=== PATIENT | male | born 1960 | race Caucasian/White ===

== ENCOUNTER 2019-06-11 07:32 | Emergency (ER) | payer OTHER ==
--- NOTE | 2019-06-11 08:23 | ER ---
Nurse's Notes [facility] Name: Kofi Rodríguez Age: 59 yrs Sex: Male : 1960 Arrival Date: 06/11/2019 Time: 07:33 Bed 15 Private MD: Diagnosis: Toxic effect of venom of wasps;Cellulitis of left upper limb Presentation: 06/10 07:58 Chief complaint: Chief complaint: Patient states: left hand redness and swelling after aa5 being stung by wasp yesterday. 07:58 Initial Sepsis Screen: Does the patient meet any 2 criteria? No. Patient's initial aa5 sepsis screen is negative. Does the patient have a suspected source of infection? No. Patient's initial sepsis screen is negative. Risk Assessment: Do you want to hurt yourself or someone else? Patient reports no desire to harm self or others. Onset of symptoms was May 2019. 07:58 Acuity: RADHA 5 aa5 07:58 Method Of Arrival: Ambulatory aa5 07:58 Coronavirus screen: Proceed with normal triage. Patient denies a cough. Patient denies aa5 shortness of breath or difficulty breathing. Patient denies measured and/or subjective temperature greater than 100.4F prior to today's visit. Patient denies travel on a cruise ship or to a country the [facility] currently lists as an affected area. Patient denies contact with known and/or suspected case of COVID-19. Ebola Screen: Patient negative for fever greater than or equal to 101.5 degrees Fahrenheit, and additional compatible Ebola Virus Disease symptoms. Onset: The symptoms/episode began/occurred 1 day(s) ago. Anaphylaxis evaluation, no signs or symptoms of anaphylaxis were noted. Historical: - Allergies: 08:01 NKDA; aa5 - PMHx: 08:01 Cellulitis; aa5 - PSHx: 08:01 cyst removed from neck and back; aa5 - Immunization history:: Flu vaccine is not up to date. - Social history:: Smoking status: Patient denies any tobacco usage or history of. - Family history:: not pertinent. - Hospitalizations: : No recent hospitalization is reported. Screenin:00 Abuse screen: Denies threats or abuse. Nutritional screening: No deficits noted. aa5 Tuberculosis screening: No symptoms or risk factors identified. Fall Risk None identified. Assessment: 08:02 General: Appears comfortable, Behavior is calm, cooperative. Pain: Complains of pain in aa5 left hand Pain does not radiate. Pain currently is 3 out of 10 on a pain scale. Is continuous. Neuro: Level of Consciousness is awake, alert, obeys commands, Oriented to person, place, time, situation. Cardiovascular: Patient's skin is warm and dry. Respiratory: Airway is patent Respiratory effort is even, unlabored, Respiratory pattern is regular, symmetrical, Breath sounds are clear bilaterally. GI: No signs and/or symptoms were reported involving the gastrointestinal system. : No signs and/or symptoms were reported regarding the genitourinary system. EENT: No signs and/or symptoms were reported regarding the EENT system. Derm: Skin is pink, warm \T\ dry. Musculoskeletal: swelling and redness noted to left hand. 08:43 Reassessment: Patient is alert, oriented x 3, equal unlabored respirations, skin aa5 warm/dry/pink. Vital Signs: 08:01 BP 139 / 63; Pulse 78; Resp 16 S; Temp 98.7(O); Pulse Ox 97% on R/A; Weight 96.16 kg aa5 (R); Height 5 ft. 9 in. (175.26 cm) (R); Pain 3/10; 08:01 Body Mass Index 31.31 (96.16 kg, 175.26 cm) aa5 ED Course: 07:33 Patient arrived in ED. as 07:58 Arm band placed on. aa5 07:58 Patient has correct armband on for positive identification. Bed in low position. Call aa5 light in reach. Side rails up X 1. 07:59 Triage completed. aa5 08:02 Lynda Chun, RN is Primary Nurse. aa5 08:09 Venancio Zarate MD is Attending Physician. rn 08:43 No provider procedures requiring assistance completed. Patient did not have IV access aa5 during this emergency room visit. Administered Medications: No medications were administered Outcome: 08:22 Discharge ordered by . rn 08:43 Discharged to home ambulatory. aa5 08:43 Condition: stable 08:43 Discharge instructions given to patient, Instructed on discharge instructions, follow up and referral plans. medication usage, Demonstrated understanding of instructions, follow-up care, medications, Prescriptions given X 2. 08:46 Patient left the ED. aa5 Signatures: Ebony Vega Roman, MD MD rn Lynda Chun RN RN aa5 Corrections: (The following items were deleted from the chart) 07:59 07:58 Chief complaint: aa5 aa5 08:02 08:01 BP 139 / 63; Pulse 78bpm; Resp 16bpm; Spontaneous; Pulse Ox 97% RA; Temp 98.7F aa5 Oral; 96.16 kg Reported; Height 5 ft. 9 in. Reported; BMI: 31.3; aa5
--- NOTE | 2019-06-11 08:24 | EDPHYS ---
Physician Documentation [facility] Name: Kofi Rodríguez Age: 59 yrs Sex: Male : 1960 Arrival Date: 06/11/2019 Time: 07:33 Bed 15 Private MD: ED Physician Venancio Zarate HPI: 06/10 08:17 This 59 yrs old Male presents to ER via Ambulatory with complaints of Hand rn Swelling, Bee Sting. 08:17 The patient or guardian reports swelling. The complaints affect the left hand diffusely.rn 08:18 Onset: The symptoms/episode began/occurred yesterday. Modifying factors: The symptoms rn are alleviated by nothing, the symptoms are aggravated by nothing. Severity of symptoms: At their worst the symptoms were mild, in the emergency department the symptoms are unchanged. The patient has experienced a previous episode. Reports left hand swelling and warmth, began yesterday after wasp sting, single, no sob or other allergic symptoms. Reports stung before and never took this long to improve and has also had cellulitis and concerned may be infected now. Was wearing old gloves. . Historical: - Allergies: 08:01 NKDA; aa5 - PMHx: 08:01 Cellulitis; aa5 - PSHx: 08:01 cyst removed from neck and back; aa5 - Immunization history:: Flu vaccine is not up to date. - Social history:: Smoking status: Patient denies any tobacco usage or history of. - Family history:: not pertinent. - Hospitalizations: : No recent hospitalization is reported. ROS: 08:18 Constitutional: Negative for fever, chills, and weight loss, Eyes: Negative for injury, rn pain, redness, and discharge, Cardiovascular: Negative for chest pain, palpitations, and edema, Respiratory: Negative for shortness of breath, cough, wheezing, and pleuritic chest pain, Abdomen/GI: Negative for abdominal pain, nausea, vomiting, diarrhea, and constipation, Back: Negative for injury and pain, MS/Extremity: + left hand swelling Skin: + redness left hand Neuro: Negative for headache, weakness, numbness, tingling, and seizure. Exam: 08:18 Constitutional: This is a well developed, well nourished patient who is awake, alert, rn and in no acute distress. Cardiovascular: Regular rate and rhythm. No pulse deficits. Respiratory: Speaking full sentences. No increased work of breathing, no retractions or nasal flaring. Skin: Warm, dry, + mild erythema and blanching of left dorsal hand, no fluctuance or induration, + mild edema, no streaking. MS/ Extremity: Pulses equal, no cyanosis. Neurovascular intact. Full, normal range of motion. Neuro: Awake and alert, GCS 15, oriented to person, place, time, and situation. Cranial nerves II-XII grossly intact. Motor strength 5/5 in all extremities. Sensory grossly intact. Cerebellar exam normal. Normal gait. Vital Signs: 08:01 BP 139 / 63; Pulse 78; Resp 16 S; Temp 98.7(O); Pulse Ox 97% on R/A; Weight 96.16 kg aa5 (R); Height 5 ft. 9 in. (175.26 cm) (R); Pain 3/10; 08:01 Body Mass Index 31.31 (96.16 kg, 175.26 cm) aa5 MDM: 08:09 Patient medically screened. rn 08:18 Differential diagnosis: wasp sting, localized allergic reaction, early cellulitis. Data rn reviewed: vital signs, nurses notes, and as a result, I will discharge patient. Counseling: I had a detailed discussion with the patient and/or guardian regarding: the historical points, exam findings, and any diagnostic results supporting the discharge/admit diagnosis, the need for outpatient follow up, to return to the emergency department if symptoms worsen or persist or if there are any questions or concerns that arise at home. Special discussion: I discussed with the patient/guardian in detail that at this point there is no indication for admission to the hospital. It is understood, however, that if the symptoms persist or worsen the patient needs to return immediately for re-evaluation. ED course: Normal vitals, no indication for emergent admission, will dc home with steroids and abx for allergic reaction and possible early cellulitis. Return precautions given and understood.. Administered Medications: No medications were administered Disposition: 06/11/19 08:22 Discharged to Home. Impression: Toxic effect of venom of wasps, Cellulitis of left upper limb. - Condition is Stable. - Discharge Instructions: Bee, Wasp, or Hornet Sting, Adult, Cellulitis, Adult. - Prescriptions for Prednisone 20 mg Oral Tablet - take 3 tablet by ORAL route once daily for 5 days; 15 tablet. Bactrim DS 800- 160 mg Oral Tablet - take 1 tablet by ORAL route every 12 hours for 10 days; 20 tablet. - Medication Reconciliation Form, Thank You Letter, Antibiotic Education, Prescription Opioid Use form. - Follow up: Private Physician; When: As needed; Reason: Recheck today's complaints, Re-evaluation by your physician. - Problem is new. - Symptoms are unchanged. Signatures: Venancio Zarate MD MD rn Calderon, Audri, RN RN aa5 Corrections: (The following items were deleted from the chart) 08:46 08:22 06/11/2019 08:22 Discharged to Home. Impression: Toxic effect of venom of wasps; aa5 Cellulitis of left upper limb. Condition is Stable. Forms are Medication Reconciliation Form, Thank You Letter, Antibiotic Education, Prescription Opioid Use. Follow up: Private Physician; When: As needed; Reason: Recheck today's complaints, Re-evaluation by your physician. Problem is new. Symptoms are unchanged. rn
[2019-06-11 08:51] VITALS: BP 139/63; TEMP 98.7; O2SAT 97
== END 2019-06-11 08:46 | disposition home or self-care (01) ==
LOC: ER 07:32
DX: L03.114 Cellulitis of left upper limb (principal); T63.461A Toxic effect of venom of wasps, accidental (unintentional), initial encounter
CPT/HCPCS: 99282

== ENCOUNTER 2020-03-10 14:04 | Emergency (ER) | payer OTHER ==
[2020-03-10 16:43] LABS: Absolute Lymphocytes (CBC) 2.6 K/uL (0.7-4.9); Basophils % 1.1 % (0-1.3); Hematocrit 42.8 % (39.6-49.0); Lymphocytes % 37.7 % (15.3-44.8); MPV 8.6 fL (7.6-11.3); RBC Red Blood Cell Count 4.62 M/uL (4.33-5.43)
[2020-03-10 16:59] LABS: BUN Blood Urea Nitrogen 19 mg/dL (7-18); Bicarbonate 30 mmol/L (21-32); Glucose Level 86 mg/dL (74-106); Magnesium 2.5 mg/dL (1.8-2.4); NT PRO-BNP 511 pg/mL (<125); Sodium Level 140 mmol/L (136-145); Troponin (Emerg Dept Use Only) < 0.02 ng/mL (0.0-0.045)
--- NOTE | 2020-03-10 16:59 | RAD REPORT ---
EXAM DESCRIPTION: RAD - Chest Single View - 03/10/2020 4:42 pm CLINICAL HISTORY: PALPITATIONS, bradycardic episode COMPARISON: Two view chest June 2018 TECHNIQUE: AP portable chest image was obtained 03/10/2020 4:42 pm . FINDINGS: Lung volumes are low. No peripheral mass or consolidation. No failure or volume overload. Interstitial pattern is not clearly different from comparison. Heart and vasculature are normal. No m easurable pleural effusion and no pneumothorax. No acute bony abnormality seen. No acute aortic findi ngs suspected. IMPRESSION: No acute cardiopulmonary process. No significant change from comparison study.
--- NOTE | 2020-03-10 17:33 | ER ---
Nurse's Notes [facility] Name: Kofi Rodríguez Age: 60 yrs Sex: Male : 1960 Arrival Date: 03/10/2020 Time: 14:09 Bed 14 Private MD: Diagnosis: Palpitations Presentation: 03/10 14:18 Chief complaint: Patient states: like last Tuesday, i started noticing a fluttering, tw2 then i got a blood pressure cuff and started checking it, i noticed my bp 145/90, hr was normal then it not down to 23, when my heart was pounding. Coronavirus screen: At this time, the client does not indicate any symptoms associated with coronavirus-19. Ebola Screen: Patient denies travel to an Ebola-affected area in the 21 days before illness onset. Initial Sepsis Screen: Does the patient meet any 2 criteria? No. Patient's initial sepsis screen is negative. Does the patient have a suspected source of infection? No. Patient's initial sepsis screen is negative. Risk Assessment: Do you want to hurt yourself or someone else? Patient reports no desire to harm self or others. Onset of symptoms was March 10, 2020. 14:18 Method Of Arrival: Ambulatory tw2 14:18 Acuity: RADHA 3 tw2 Triage Assessment: 14:21 General: Appears in no apparent distress. Behavior is calm, cooperative, appropriate tw2 for age. Pain: Denies pain. Historical: - Allergies: 14:21 NKDA; tw2 - Home Meds: 14:21 None [Active]; tw2 - PMHx: 14:21 Cellulitis; tw2 - PSHx: 14:21 cyst removed from neck and back; tw2 - Immunization history:: Adult Immunizations. - Social history:: Smoking status: Patient denies any tobacco usage or history of. - Family history:: not pertinent. - Hospitalizations: : No recent hospitalization is reported. Screenin:52 Abuse screen: Denies threats or abuse. Nutritional screening: No deficits noted. tw2 Tuberculosis screening: No symptoms or risk factors identified. Fall Risk None identified. Assessment: 16:41 General: Appears in no apparent distress. comfortable, Behavior is calm, cooperative. ss Pain: Denies pain. Neuro: Level of Consciousness is awake, alert, obeys commands, Oriented to person, place, time, situation, Speech is normal, Facial symmetry appears normal, Denies dizziness, headache. Cardiovascular: Capillary refill < 3 seconds is brisk in bilateral fingers. Cardiovascular: Reports palpitations, since intermittent since last week. Respiratory: Airway is patent Respiratory effort is even, unlabored, Respiratory pattern is regular, symmetrical, Denies cough, shortness of breath labored breathing, pain with respiration, pain with cough, pain with movement. GI: Patient currently denies abdominal pain, diarrhea, nausea, vomiting. : No signs and/or symptoms were reported regarding the genitourinary system. EENT: Nares are clear Oral mucosa is moist. Derm: Skin is intact, is healthy with good turgor, Skin is dry, Skin is pink, warm \T\ dry. normal. Musculoskeletal: Circulation, motion, and sensation intact. Range of motion: intact in all extremities, Swelling absent. Vital Signs: 14:18 BP 129 / 86; Pulse 85; Resp 18; Temp 97.9(TE); Pulse Ox 97% on R/A; Weight 95.25 kg tw2 (R); Height 5 ft. 9 in. (175.26 cm); Pain 0/10; 14:18 Body Mass Index 31.01 (95.25 kg, 175.26 cm) tw2 ED Course: 14:09 Patient arrived in ED. mr 14:20 Triage completed. tw2 14:24 Arm band placed on. tw2 14:24 EKG completed in triage. Results shown to MD. tw2 15:49 Bed in low position. Call light in reach. tw2 15:54 Venancio Zarate MD is Attending Physician. rn 15:56 Latisha Pro RN is Primary Nurse. ss 16:30 Inserted saline lock: 20 gauge in right antecubital area, using aseptic technique. ss Blood collected. Patient maintains SpO2 saturation greater than 95% on room air. 16:42 XRAY Chest (1 view) In Process Unspecified. EDMS Administered Medications: 17:52 CANCELLED (per Dr. Zarate): Zofran (Ondansetron) 4 mg IVP once; over 2 minutes hb Outcome: 17:32 Discharge ordered by . rn 18:16 Patient left the ED. hb Signatures: Dispatcher [employer] EDDC Mansi Carranza Roman, MD MD rn Smirch, Shelby RN RN ss Karen Go, RN RN Chela Estrada, RN RN tw2
--- NOTE | 2020-03-10 17:33 | EDPHYS ---
Physician Documentation [facility] Name: Kofi Rodríguez Age: 60 yrs Sex: Male : 1960 Arrival Date: 03/10/2020 Time: 14:09 Bed 14 Private MD: ED Physician Venancio Zarate HPI: 03/10 16:23 This 60 yrs old Male presents to ER via Ambulatory with complaints of rn Irregular heartbeat. 16:23 The patient presents with a history of irregular heart beat, slow. Context: The rn symptoms occur at rest. Onset: The symptoms/episode began/occurred 1 week(s) ago. Duration: The patient or guardian reports multiple episodes, that are intermittent. Modifying factors: The symptoms are aggravated by nothing. The symptoms are alleviated by nothing. Severity of symptoms: At their worst the symptoms were moderate in the emergency department the symptoms have improved. The patient has not experienced similar symptoms in the past. The patient has not recently seen a physician. Reports for approx 1 week has been feeling irregular heart beat, reports "fluttering", brief episodes, BP running in 140s-160s, and pulse oximeter showing heart rate in 40s-50s when it happens. Currently not feeling anything. No syncope. No chest pain/sob/abd pain/vomiting/diarrhea. No hx of heart problems, doesn't take any medication. Has appt with pcp tomorrow, and cardiology appt in 3 weeks. . Historical: - Allergies: 14:21 NKDA; tw2 - Home Meds: 14:21 None [Active]; tw2 - PMHx: 14:21 Cellulitis; tw2 - PSHx: 14:21 cyst removed from neck and back; tw2 - Immunization history:: Adult Immunizations. - Social history:: Smoking status: Patient denies any tobacco usage or history of. - Family history:: not pertinent. - Hospitalizations: : No recent hospitalization is reported. ROS: 16:23 Constitutional: Negative for fever, chills, and weight loss, Eyes: Negative for injury, rn pain, redness, and discharge, Neck: Negative for injury, pain, and swelling, Cardiovascular: Negative for chest pain, and edema, Respiratory: Negative for shortness of breath, cough, wheezing, and pleuritic chest pain, Abdomen/GI: Negative for abdominal pain, nausea, vomiting, diarrhea, and constipation, Back: Negative for injury and pain, MS/Extremity: Negative for injury and deformity, Skin: Negative for injury, rash, and discoloration, Neuro: Negative for headache, weakness, numbness, tingling, and seizure. Exam: 16:23 Constitutional: This is a well developed, well nourished patient who is awake, alert, rn and in no acute distress. Head/Face: Normocephalic, atraumatic. Eyes: Periorbital areas with no swelling, redness, or edema. Cardiovascular: Regular rate and rhythm. No pulse deficits. Respiratory: Speaking full sentences, unlabored. No increased work of breathing, no retractions or nasal flaring. Skin: Warm, dry MS/ Extremity: Pulses equal, no cyanosis. Neuro: Awake and alert, GCS 15 17:32 ECG was reviewed by the Attending Physician. rn Vital Signs: 14:18 BP 129 / 86; Pulse 85; Resp 18; Temp 97.9(TE); Pulse Ox 97% on R/A; Weight 95.25 kg tw2 (R); Height 5 ft. 9 in. (175.26 cm); Pain 0/10; 14:18 Body Mass Index 31.01 (95.25 kg, 175.26 cm) tw2 MDM: 15:54 Patient medically screened. rn 17:30 Differential diagnosis: arrythmia, dehydration, stress disorder. Data reviewed: vital rn signs, nurses notes, lab test result(s), EKG, radiologic studies, plain films, and as a result, I will discharge patient. Counseling: I had a detailed discussion with the patient and/or guardian regarding: the historical points, exam findings, and any diagnostic results supporting the discharge/admit diagnosis, lab results, radiology results, the need for outpatient follow up, to return to the emergency department if symptoms worsen or persist or if there are any questions or concerns that arise at home. Special discussion: I discussed with the patient/guardian in detail that at this point there is no indication for admission to the hospital. It is understood, however, that if the symptoms persist or worsen the patient needs to return immediately for re-evaluation. Based on the history and exam findings, there is no indication for further emergent testing or inpatient evaluation. I discussed with the patient/guardian the need to see the certified master safe technician for further evaluation of the symptoms. I discussed with the patient/guardian the need to see the primary care provider for further evaluation of the symptoms. ED course: No acute findings in bloodwork/ecg/CXR, will dc home, has pcp appt tomorrow for more testing, and has cardiology appt in 3 weeks. Return precautions given and understood. Spoke to him about paroxysmal arrhythmias and possibilities. . 03/10 16:08 Order name: Basic Metabolic Panel; Complete Time: 17:06 rn 03/10 16:08 Order name: CBC with Diff; Complete Time: 17:15 rn 03/10 16:08 Order name: Magnesium; Complete Time: 17: rn 03/10 16:08 Order name: NT PRO-BNP; Complete Time: 17: rn 03/10 16:08 Order name: Troponin (emerg Dept Use Only); Complete Time: 17: rn 03/10 16:08 Order name: XRAY Chest (1 view); Complete Time: 17: rn 03/10 14:24 Order name: EKG; Complete Time: 14:25 tw2 03/10 14:24 Order name: EKG - Nurse/Tech; Complete Time: 14:24 tw2 03/10 16:08 Order name: Cardiac monitoring; Complete Time: 16:40 rn 03/10 16:08 Order name: IV Saline Lock; Complete Time: 16:40 rn 03/10 17:28 Order name: EKG; Complete Time: 17:29 rn 03/10 16:08 Order name: Labs collected and sent; Complete Time: 16:40 rn 03/10 16:08 Order name: O2 Per Protocol; Complete Time: 16:40 rn 03/10 16:08 Order name: O2 Sat Monitoring; Complete Time: 16:41 03/10 17:28 Order name: EKG - Nurse/Tech; Complete Time: 17:48 rn EC:32 Rate is 76 beats/min. Rhythm is regular. Left axis deviation noted. QRS is positive in rn lead I and negative in lead aVF. RI interval is normal. QRS interval is normal. QT interval is normal. No Q waves. T waves are Normal. No ST changes noted. Clinical impression: NSR, Left axis deviation. Interpreted by me. Reviewed by me. Administered Medications: 17:52 CANCELLED (per Dr. Zarate): Zofran (Ondansetron) 4 mg IVP once; over 2 minutes hb Disposition: 03/10/20 17:32 Discharged to Home. Impression: Palpitations. - Condition is Stable. - Discharge Instructions: Palpitations. - Medication Reconciliation Form, Thank You Letter, Antibiotic Education, Prescription Opioid Use form. - Follow up: Private Physician; When: As needed; Reason: Recheck today's complaints, Re-evaluation by your physician. - Problem is an ongoing problem. - Symptoms have improved. Signatures: Dispatcher [employer] EDMS Venancio Zarate MD MD rn Baxter, Heather RN RN Chela Almaraz RN RN tw2 Corrections: (The following items were deleted from the chart) 17:52 17:29 Zofran (Ondansetron) 4 mg IVP once; over 2 minutes ordered. rn melo 17:58 17:30 Head Brain Wo Cont+CT.RAD.BRZ ordered. EDIA EDIA 17:58 17:30 Abdomen Pelvis W Con+CT.RAD.BRZ ordered. EDIA EDIA 18:16 17:32 03/10/2020 17:32 Discharged to Home. Impression: Palpitations. Condition is hb Stable. Forms are Medication Reconciliation Form, Thank You Letter, Antibiotic Education, Prescription Opioid Use. Follow up: Private Physician; When: As needed; Reason: Recheck today's complaints, Re-evaluation by your physician. Problem is an ongoing problem. Symptoms have improved. rn
[2020-03-10 18:21] VITALS: BP 129/86; TEMP 97.9; O2SAT 97
--- NOTE | 2020-03-12 06:32 | EKG ---
Test Date: 2020-03-10 Test Time: 17:33:50 Interior Design Consultant: HB MEASUREMENT RESULTS: Intervals: Rate: 68 NC: 174 QRSD: 86 QT: 420 QTc: 446 [place]: P: 26 NC: 174 QRS: -33 T: 6 INTERPRETIVE STATEMENTS: Normal sinus rhythm Left axis deviation Cannot rule out Anterior infarct, age undetermined Abnormal ECG Compared to ECG 03/10/2020 14:13:46 Left-axis deviation now present Left anterior fascicular block no longer present Myocardial infarct finding still present Electronically Signed On 03-12-20 06:27:34 PIPE CHANGER by Abhijit Beach
--- NOTE | 2020-03-12 06:33 | EKG ---
Test Date: 2020-03-10 Test Time: 14:13:46 Vp Delivery: JENNIFER MEASUREMENT RESULTS: Intervals: Rate: 76 [place]: 168 QRSD: 88 QT: 402 QTc: 452 [place]: P: 23 [place]: 168 QRS: -50 T: -13 INTERPRETIVE STATEMENTS: Normal sinus rhythm Left anterior fascicular block Cannot rule out Inferior infarct (masked by fascicular block?), age undetermined Cannot rule out Anterior infarct, age undetermined Abnormal ECG Compared to ECG 06/06/2016 14:28:43 Left anterior fascicular block now present Myocardial infarct finding now present Sinus bradycardia no longer present Electronically Signed On 03-12-20 06:27:59 PIT CLERK by Abhijit Beach
== END 2020-03-10 18:16 | disposition home or self-care (01) ==
LOC: ER 14:04
DX: R00.2 Palpitations (principal)
CPT/HCPCS: 36415; 71045; 80048; 83735; 83880; 84484; 85025; 93005; 99284